=== PATIENT | male | born 1985 | race Caucasian/White ===

== ENCOUNTER 2021-01-05 14:15 | Emergency (ER) | payer BC ==
[~2021-01-05] VITALS: Ht 182.9 cm; Wt 78.9 kg
[2021-01-05] MEDS ORDERED: NOHOMEMEDICATIONS (14:22)
[2021-01-05 15:56] VITALS: BP 137/75
== END 2021-01-05 15:57 | disposition home or self-care (01) ==
LOC: ER 14:15
DX: R51.9 Headache, unspecified (principal)